=== PATIENT | female | born 1975 | race Caucasian/White ===

== ENCOUNTER 2018-10-22 07:09 | Day surgery (SDC) | payer BC ==
[~2018-10-22] VITALS: Ht 167.6 cm; Wt 114.3 kg
[~2018-10-22 07:09] MED LIST: BUSPIRONE; LISINOPRIL; ONDA4TAB7 PO; OXYC-302 PO; PREVACID; TRAZODONE
[2018-10-22] MEDS ORDERED: LACTATED RINGERS 1,000 ML IV SCH (07:39)
[2018-10-22 07:46] VITALS: BP 139/90
[2018-10-22] MEDS ORDERED: OMEP-110 PO (07:48)
[2018-10-22 08:01] LABS: HCG UR SG 1.018 (1.003-1.030)
[2018-10-22] MEDS ORDERED: PROPOFOL 50 ML ONE (08:56)
[2018-10-22] MEDS ORDERED: FENTANYL PF 100 MCG/2ML ONE (09:05)
== END 2018-10-22 10:31 | disposition home or self-care (01) ==
LOC: OUT 07:09
PROVIDERS: ATTEND Internal Medicine Gastroenterology
DX: K57.30 Diverticulosis of large intestine without perforation or abscess without bleeding (principal); K59.39 Other megacolon; K21.9 Gastro-esophageal reflux disease without esophagitis; I10 Essential (primary) hypertension; E66.01 Morbid (severe) obesity due to excess calories; F17.210 Nicotine dependence, cigarettes, uncomplicated; Z68.41 Body mass index [BMI] 40.0-44.9, adult; Z72.89 Other problems related to lifestyle; Z79.899 Other long term (current) drug therapy; Z88.5 Allergy status to narcotic agent; Z88.8 Allergy status to other drugs, medicaments and biological substances; Z98.84 Bariatric surgery status
CPT/HCPCS: 43235; 45378; 81025; J2704; J3010; J7120

== ENCOUNTER 2019-04-30 11:15 | Emergency (ER) | payer BC ==
[~2019-04-30] VITALS: Ht 167.6 cm; Wt 106.5 kg
[~2019-04-30 11:15] MED LIST changes: +OMEP-110 PO
--- NOTE | 2019-04-30 11:35 | NUR ---
43 Y/O FEMALE PRESENTS TO ED WITH C/O ETOH/DETOX. PER PT "I NEED HELP DETOXING. MY LAST DRINK WAS ABOUT 8 HOURS AGO. I DRANK HALF GALLON OF VODKA. I'VE BEEN DRINKING FOR THE LAST 4 DAYS. I NEED MEDS TO HELP ME. I'VE NEVER DRANK LIKE THIS BEFORE. "NADN. PT PLACED ON CONT PULSE OX,NIBP. NO C/O D, TRAUMA, SYNCOPE, CP, SOB. Addendum: 04/30/19 at 1345 by RAJIV PT DOES NOT APPEAR TO BE TREMELOUS AT THIS TIME
[2019-04-30] MEDS ORDERED: LORazepam 2 MG/ML, 1ML IVPush ONE (12:30)
[2019-04-30] MEDS ORDERED: SODIUM CHLORIDE 0.9% 1,000ML IVBOLUS ONE (12:30)
[2019-04-30] MEDS ORDERED: ONDANSETRON 2MG/ML, 2ML IVPush ONE (12:30)
[2019-04-30] MEDS ORDERED: FAMOTIDINE 20 MG/2 ML IV ONE (12:30)
[2019-04-30] MEDS ORDERED: ONDANSETRON 2MG/ML, 2ML ONE (12:41)
[2019-04-30] MEDS ORDERED: LORazepam 2 MG/ML, 1ML ONE (12:42)
[2019-04-30] MEDS ORDERED: FAMOTIDINE 20 MG/2 ML ONE (12:42)
[2019-04-30 12:46] LABS: CHLORIDE 104 mmol/L (98-107)
[2019-04-30 12:48] LABS: MEAN CORPUSCULAR HEMOGLOBIN 20.4 pg (27.0-34.8); MEAN CORPUSCULAR HGB CONC 30.5 g/dL (32.4-35.8); MEAN PLATELET VOLUME 8.2 fL (7.4-10.4); PLATELET COUNT 385 x10^3/uL (130-400); RED CELL DISTRIBUTION WIDTH 20.8 % (9.6-15.2)
[2019-04-30 12:53] LABS: ALANINE AMINOTRANSFERASE 38 U/L (12-78); ANION GAP 14 mmol/L (5-15); CALCIUM 8.5 mg/dL (8.5-10.1); CREATININE 0.78 mg/dL (0.55-1.02)
--- NOTE | 2019-04-30 12:55 | NUR ---
MEDICATION ADMINISTERED PER EMAR. GARCIA. PT RESTING ON [facility]. PIV ESTABLISHED BY MAYNOR FITZPATRICK.
--- NOTE | 2019-04-30 12:55 | NUR ---
LATE ENTRY FOR 1235 RECEIVED BEDSIDE REPORT FROM MAYNOR MICHEL RN.
[2019-04-30 12:57] LABS: ALKALINE PHOSPHATASE 90 U/L (45-117); BILIRUBIN,TOTAL 0.6 mg/dL (0.2-1.0); TOTAL PROTEIN 8.7 g/dL (6.4-8.2)
[2019-04-30 13:05] LABS: BASOPHILS # (AUTO) 0.14 x10^3/uL (0-0.1); BASOPHILS % (AUTO) 2 % (0-1); EOSINOPHILS # (AUTO) 0.06 x10^3/uL (0-0.4); EOSINOPHILS % (AUTO) 1 % (1-7); LYMPHOCYTES # (AUTO) 2.24 x10^3/uL (1-3.4); LYMPHOCYTES % (AUTO) 30 % (22-44); MD SCAN; MONOCYTES # (AUTO) 0.66 x10^3/uL (0.2-0.8); MONOCYTES % (AUTO) 9 % (2-9); NEUTROPHILS # (AUTO) 4.46 x10^3/uL (1.8-6.8); NEUTROPHILS % (AUTO) 59 % (42-75)
[2019-04-30] MEDS ORDERED: ACETAMINOPHEN 500 MG TABLET ONE (13:42)
[2019-04-30 13:46] VITALS: BP 178/93
--- NOTE | 2019-04-30 13:47 | NUR ---
MEDICATION ADMINISTERED PER ORDER. NADN. PT RESTING ON GURNEY. NO OTHER NEEDS REQUESTED AT THIS TIME.
[2019-04-30] MEDS ORDERED: ACETAMINOPHEN 325 MG TABLET PO ONE (14:00)
[2019-04-30] MEDS ORDERED: CHLORDIAZEPOXIDE 25 MG CAPSULE PO ONE (15:00)
--- NOTE | 2019-04-30 15:14 | NUR ---
LATE ENTRY FOR 1430 PT HAS BP AND PULSE REMOVED. PT DOESN'T WANT THEM ON AT THIS TIME. JOSE.
--- NOTE | 2019-04-30 15:15 | NUR ---
Patient/Caregiver given discharge instructions and they have confirmed that they understand the instructions. Patient ambulatory with steady gait. PT EDUCATED REGARDING DETOX CENTERS. PT ALSO GIVEN LIST OF RESOURCES. PIV D/C WITH TIP INTACT PRESSURE DRESSING APPLIED. PT LEFT WITH ALL PERSONAL BELONGINGS.
== END 2019-04-30 15:18 | disposition home or self-care (01) ==
LOC: ED 11:52
DX: F10.239 Alcohol dependence with withdrawal, unspecified (principal); R45.1 Restlessness and agitation; Y90.0 Blood alcohol level of less than 20 mg/100 ml; K21.9 Gastro-esophageal reflux disease without esophagitis; I10 Essential (primary) hypertension; F17.200 Nicotine dependence, unspecified, uncomplicated
CPT/HCPCS: 36415; 80053; 80307; 83690; 83735; 84703; 85025; 96374; 96375; 99283; J2060; J2405; J3490; J7030

== ENCOUNTER 2019-05-04 18:33 | Emergency (ER) | payer BC ==
[~2019-05-04] VITALS: Ht 167.6 cm; Wt 110.0 kg
[2019-05-04 18:33] VITALS: BP 143/89
[2019-05-04] MEDS ORDERED: ONDANSETRON ODT 4 MG PO ONE (19:00)
[2019-05-04] MEDS ORDERED: LORazepam 1MG TABLET PO ONE (19:00)
--- NOTE | 2019-05-04 19:05 | NUR ---
report given to Carol
[2019-05-04 19:10] LABS: HCG UR SG 1.022 (1.003-1.030)
[2019-05-04] MEDS ORDERED: LORazepam 1MG TABLET ONE (19:20)
[2019-05-04] MEDS ORDERED: ONDANSETRON ODT 4 MG ONE (19:20)
[2019-05-04 19:28] LABS: ALBUMIN 3.3 g/dL (3.4-5.0); ANION GAP 10 mmol/L (5-15); CALCIUM 8.1 mg/dL (8.5-10.1); CHLORIDE 103 mmol/L (98-107)
[2019-05-04 19:32] LABS: ALANINE AMINOTRANSFERASE 41 U/L (12-78); ALKALINE PHOSPHATASE 73 U/L (45-117); BILIRUBIN,TOTAL 1.2 mg/dL (0.2-1.0); CREATININE 0.52 mg/dL (0.55-1.02); SALICYLATE LEVEL 2.3 mg/dL (2.8-20.0); TOTAL PROTEIN 7.3 g/dL (6.4-8.2)
--- NOTE | 2019-05-04 19:45 | NUR ---
pt states she was at [facility] last night attempting to seek help for detoxing from alcohol. she was drunk when she went to [facility] and pt states that [facility] turned her down because she was drunk. she proceeded to become angry and [facility] called [place] to have her arrested for trespassing. she was assested and proceeded to become irate with [facility]. she was placed on a hold by [facility] because she made some comments while drunk and in senior care about wanting to hurt herself, so [facility] sent here here. pt states he last drink was earlier yesterday. she states she is not suicidal and does not want to hurt herself. pt state she wants to go to a facility to detox so she can stop drinking and have a better life. she said she made SI comments in senior care because she was drunk and frustrated. no hx si/sa.
[2019-05-04 19:46] LABS: AMPHETAMINE SCREEN, URINE Negative (Negative); BARBITURATE SCREEN, URINE Negative (Negative); BENZODIAZEPINE SCREEN, URINE Negative (Negative); CANNABINOID SCREEN, URINE Negative (Negative); COCAINE SCREEN, URINE Negative (Negative); METHADONE SCREEN, URINE Negative (Negative); OPIATE SCREEN, URINE Negative (Negative)
[2019-05-04 19:50] LABS: BASOPHILS % (AUTO) 0 % (0-1); EOSINOPHILS # (AUTO) 0.06 x10^3/uL (0-0.4); EOSINOPHILS % (AUTO) 1 % (1-7); LYMPHOCYTES # (AUTO) 1.65 x10^3/uL (1-3.4); LYMPHOCYTES % (AUTO) 21 % (22-44); MD NO; MEAN CORPUSCULAR HGB CONC 30.5 g/dL (32.4-35.8); MEAN CORPUSCULAR VOLUME 68.8 fL (80-100); MEAN PLATELET VOLUME 9.2 fL (7.4-10.4); MONOCYTES # (AUTO) 0.52 x10^3/uL (0.2-0.8); MONOCYTES % (AUTO) 7 % (2-9); NEUTROPHILS # (AUTO) 5.61 x10^3/uL (1.8-6.8); NEUTROPHILS % (AUTO) 72 % (42-75); PLATELET COUNT 282 x10^3/uL (130-400); RED BLOOD COUNT 4.27 x10^6/uL (3.82-5.3); RED CELL DISTRIBUTION WIDTH 21.2 % (9.6-15.2)
--- NOTE | 2019-05-04 20:06 | NUR ---
3 bags, labeled and placed in locker.
--- NOTE | 2019-05-04 20:06 | NUR ---
report to kiley baker
--- NOTE | 2019-05-04 20:18 | NUR ---
TP RN: TELEPSYCH CONSULT INITIATED.
--- NOTE | 2019-05-04 20:33 | NUR ---
RPT GIVEN TO TELE PSYCH.
--- NOTE | 2019-05-04 21:00 | NUR ---
RPT RECEIVED FROM DR STEINER, TELEPSYCH. DR STEINER REMOVING HOLD. PT FLORINDA SI. WOULD LIKE RESOURCES FOR DETOX FACILITY. BELONGINGS RETURNED TO PT PER HER REQUEST. Addendum: 05/04/[address] RONNIE STEINER.
== END 2019-05-04 22:04 | disposition home or self-care (01) ==
LOC: ED 21:15
DX: F41.1 Generalized anxiety disorder (principal); F10.20 Alcohol dependence, uncomplicated; I10 Essential (primary) hypertension; K21.9 Gastro-esophageal reflux disease without esophagitis; F17.200 Nicotine dependence, unspecified, uncomplicated; Y90.9 Presence of alcohol in blood, level not specified
CPT/HCPCS: 36415; 80053; 80307; 81025; 85025; 99283; Q0162

== ENCOUNTER 2020-04-18 23:39 | Emergency (ER) | payer BC ==
[~2020-04-18] VITALS: Ht 167.6 cm; Wt 109.0 kg
[~2020-04-18 23:39] MED LIST changes: -OXYC-302 PO; +OXYC1TAB14 PO
[2020-04-19] MEDS ORDERED: ONDANSETRON ODT 4 MG ONE (00:21)
[2020-04-19] MEDS ORDERED: ONDANSETRON ODT 4 MG PO ONE (00:30)
--- NOTE | 2020-04-19 00:43 | NUR ---
REPORT GIVEN TO AMARI VICKERS.
[2020-04-19 00:46] LABS: MEAN CORPUSCULAR HEMOGLOBIN 20.4 pg (27.0-34.8); MEAN PLATELET VOLUME 8.6 fL (7.4-10.4); PLATELET COUNT 261 x10^3/uL (130-400); RED BLOOD COUNT 4.44 x10^6/uL (3.82-5.3); RED CELL DISTRIBUTION WIDTH 25.5 % (9.6-15.2)
[2020-04-19 00:53] LABS: ALANINE AMINOTRANSFERASE 75 U/L (12-78); ALBUMIN 3.3 g/dL (3.4-5.0); ANION GAP 7 mmol/L (5-15); CALCIUM 7.7 mg/dL (8.5-10.1); CHLORIDE 109 mmol/L (98-107); CREATININE 0.45 mg/dL (0.55-1.02)
[2020-04-19 01:00] LABS: ALKALINE PHOSPHATASE 64 U/L (45-117); BILIRUBIN,TOTAL 0.3 mg/dL (0.2-1.0); TOTAL PROTEIN 7.7 g/dL (6.4-8.2)
[2020-04-19 01:16] LABS: MEAN CORPUSCULAR HGB CONC 29.6 g/dL (32.4-35.8)
[2020-04-19 01:21] LABS: MD YES
[2020-04-19 01:24] LABS: ANISOCYTOSIS 1+; BASOS#(MANUAL) 0.04 x10^3/uL (0-0.1); BASOS% (MANUAL) 1 % (0-1); LYMPH#(MANUAL) 2.75 x10^3/uL (1-3.4); LYMPHS% (MANUAL) 67 % (22-44); MICROCYTOSIS 1+; MONOS#(MANUAL) 0.25 x10^3/uL (0.3-2.7); MONOS% (MANUAL) 6 % (2-9); SEG#(MANUAL) 1.07 x10^3/uL (1.8-6.8); SEGS% (MANUAL) 26 % (42-75)
[2020-04-19 01:25] LABS: HYPOCHROMIA 2+; OVALOCYTES 1+
[2020-04-19 01:26] LABS: <PLATELET ESTIMATE> ADEQUATE; <PLT MORPHOLOGY> NORMAL PLT MORPH
[2020-04-19] MEDS ORDERED: SODIUM CHLORIDE FLUSH 10ML SYR IVF ONE (01:30)
[2020-04-19] MEDS ORDERED: SODIUM CHLORIDE 0.9% 1,000ML IVBOLUS ONE (01:30)
--- NOTE | 2020-04-19 01:40 | NUR ---
PT STATED "YOU CAN GET MY BLOOD BUT NOT MY URINE". PT DENIED UA. PT AMBULATED TO BATHROOM WITHOUT DIFFICULTY
[2020-04-19 01:46] VITALS: BP 121/46
--- NOTE | 2020-04-19 02:40 | NUR ---
WHILE ATTEMPTING TO DC PATIENT, PT BECAME AGGITATED STATING YOU ONLY TESTED TWO TESTS WHY AM I EVEN HERE IM SICK ITS NOT NORMAL TO VOMIT. PT EDUCATED THAT FOLLOW UPS WILL BE REQUIRED.
--- NOTE | 2020-04-19 02:47 | NUR ---
Patient/Caregiver given discharge instructions and they have confirmed that they understand the instructions. Patient ambulatory with steady gait.
== END 2020-04-19 02:52 | disposition home or self-care (01) ==
LOC: ED 04-19 00:09
DX: F10.129 Alcohol abuse with intoxication, unspecified (principal); L03.211 Cellulitis of face; R11.2 Nausea with vomiting, unspecified; L29.9 Pruritus, unspecified; R05 Cough; R10.9 Unspecified abdominal pain; K21.9 Gastro-esophageal reflux disease without esophagitis; F17.210 Nicotine dependence, cigarettes, uncomplicated; Y90.0 Blood alcohol level of less than 20 mg/100 ml
CPT/HCPCS: 36415; 71045; 80053; 80320; 84703; 85025; 96360; 99284; 99406; J7030; Q0162; G0480